=== PATIENT | female | born 1965 | race Caucasian/White ===

== ENCOUNTER 2020-06-08 12:03 | Emergency (ER) | payer BC, SELFPAY ==
[2020-06-08 12:04] VITALS: BP 164/105; PULSE 101; RESP 18; TEMP 36.2; O2SAT 97; BMI 33.8
--- NOTE | 2020-06-08 12:13 | ED.VIS.UPPEX ---
History of Present Illness Chief Complaint: Bite Informant: Patient Occurred: Today Mechanism/Context: - - dog bite Onset: Today Context: Sudden Onset Timing: Continuous Quality of Pain: Sharp Location: left hand Current Severity: Moderate Maximum Severity: Moderate Worsened by: movement Relieved by: nothing Associated Symptoms: Negative for: Parasthesia, Weakness, Loss of Funtion Narrative: 55-year-old [id number] female presents with a dog bite to the left hand. This occurred just prior to arrival by the patient's own dog. Patient states that her dog is up-to-date on immunizations. The patient does not have any significant pain. She denies numbness tingling or weakness. She is not on anticoagulation. She denies any other injuries. None last tetanus immunization. Tetanus Immunization: Unknown Prior similar symptoms: No Recent Illness/Hospitalization: No Past Medical History - Allergies and Home Meds Allergies/Adverse Reactions: Allergies derma cleanse Allergy (Uncoded 06/08/20 12:04) Rash Primary Care Physician: Beltran Calle III, MD [Primary Care Provider] - Prior records reviewed: Yes Past Medical History: None Surgical History: no surgical history Smoking Status: Never smoker Review of Systems All systems negative except as indicated General: Denies: Chills, Fever, Sweats Eyes: Denies: Visual changes - bilaterally, Diplopia ENT: Denies: Rhinorrhea, Sore throat Cardiovascular: Denies: Chest pain, Palpitations Respiratory: Denies: Dyspnea, Cough, Dyspnea on exertion Gastrointestinal: Denies: Abdominal pain, Nausea, Vomiting, Diarrhea, Melena, Hematochezia Genitourinary: Denies: Dysuria, Hematuria, Frequency Musculoskeletal: Reports: Swelling, Extremity Pain. Denies: Back pain Skin: Reports: Wounds. Denies: Rash, Abscess, Abrasions Neurological: Denies: Headache, Weakness, Numbness Physical Exam Vital Signs/Narrative: Vital Signs Temp Pulse Resp BP Pulse Ox 06/08/20 12:04 97.2 F L 101 H 18 164/105 H 97 Inital Vital Signs reviewed: Yes Left Hand: - - Puncture wound dorsum left hand. Mild swelling. No redness or warmth. No rash. It is superficial. Normal active range of motion of all 5 fingers and of the wrist. Radial pulse is normal. Capillary refill and sensation of all 5 fingers is normal. No lymphatic streaking. No active bleeding General: Well nourished, Well developed Head: Normocephalic, Atraumatic Eyes: Perrl, EOMI ENT: No Trauma, Moist Mucous Membranes Neck: Nontender, Full ROM Cardiovascular: Regular rate, Regular rhythm, No murmurs Respiratory: No distress, CTA bilaterally, Chest nontender Abdomen: Soft, Nontender, Nondistended, Normal bowel sounds Back: Nontender Skin: Normal color, No rash Neurological: Alert, Oriented x3, Cranial nerves II-XII grossly intact, Normal Strength, Normal Sensation Psychological: Normal affect Diagnostic/Tx/Re-eval - Medical Decision Making Patient has a puncture wound secondary to dog bite. No sign of infection. No acute signs of arterial bleeding. No signs of compartment syndrome. No sign of infection. Tetanus updated. Augmentin given. Prescribed Augmentin. Bacitracin and dressing applied. Discussed dressing changes proper wound care and signs of infection to monitor for and were advised to follow-up in 2 days for wound check with primary care return to the emergency department for worsening symptoms which were discussed. ED Disposition - Plan for ED Patient: Disposition: Home or Assisted Living Diagnosis: Dog bite of left hand without complication Instructions: ED Dog Bite Prescriptions: Amox/Clavulanate Tablet [Augmentin Tablet] 875 mg PO Q12H #14 tab Prescription Printed Referrals: Beltran Calle III, MD [Primary Care Provider] -
[2020-06-08] MEDS: Diphth,Pertuss(Acell),Tet Vac 0.5 ML Vial IM (12:34)
[2020-06-08] MEDS: Amox/Clavulanate 875 MG Tablet PO (12:34)
== END 2020-06-08 13:02 | disposition home or self-care (01) ==
LOC: ED 12:53
PROVIDERS: Emergency Provider Physician Assistant Medical; PCP Family Medicine
DX: S61.452A Open bite of left hand, initial encounter (principal); W54.0XXA Bitten by dog, initial encounter; Z23 Encounter for immunization
CPT/HCPCS: 90471; 90715; 99283

== ENCOUNTER 2020-08-26 16:43 | Outpatient (RCR) | payer BC, SELFPAY ==
[2020-08-26] MEDS: COVID-19 VACC, MRNA(PFIZER)/PF 30 MCG/0.3 ML SYRINGE IM (17:37)
[2020-09-16] MEDS: COVID-19 VACC, MRNA(PFIZER)/PF 30 MCG/0.3 ML SYRINGE IM (17:20)
== END 2020-08-26 23:59 ==
LOC: IMMUN 16:43
PROVIDERS: PCP Family Medicine; Referring Provider Family Medicine; Visit Provider Family Medicine
DX: Z23 Encounter for immunization (principal)
CPT/HCPCS: 0001A; 0002A; 91300

== ENCOUNTER 2024-08-31 11:00 | Emergency (ER) | payer BC, SELFPAY ==
[2024-08-31 11:01] VITALS: BP 125/83; PULSE 68; RESP 16; TEMP 36.7; O2SAT 100; BMI 27.6
--- NOTE | 2024-08-31 11:14 | CT_ITS ---
PROCEDURE: BRAIN/HEAD WITHOUT CONTRAST 08/31/2024 REASON FOR EXAM: HEAD INJURY, HEADACHE TECHNIQUE: Multiple axial tomographic images were obtained without intravenous contrast administration. Coronal and sagittal reconstruction was obtained as well. COMPARISON: None FINDINGS: There is good iglesias-white matter differentiation. No acute abnormality is seen. No evidence of an intracranial hemorrhage. No evidence of mass effect. CT/Brain/Head without Contrast IMPRESSION: Unremarkable examination. Reading Location: [facility]
--- NOTE | 2024-08-31 11:14 | EKG12_ITS ---
Test Reason : Blood Pressure : */* mmHG Vent. Rate : 62 BPM Atrial Rate : 62 BPM P-R Int : 196 ms QRS Dur : 90 ms QT Int : 402 ms P-R-T Axes : 84 55 46 degrees QTcB Int : 408 ms Normal sinus rhythm Low voltage QRS Borderline ECG Confirmed by REGINE UF, GERBER ([id number]), editor at large DEEPIKA PALMER ([id number]) on 09/03/2024 6:46:53 AM Referred By: Confirmed By: GERBER WEINER MD
--- NOTE | 2024-08-31 11:15 | EDS_ITS ---
HPI History of Present Illness Chief Complaint: Syncope Detail of Chief Complaint: Syncope Informant: patient Narrative Narrative: Patient presents to the emergency department after syncopal episode 2 nights ago. Patient states that she had just finished a hot bath and was standing putting some lotion on her face when she remembers feeling dizzy and then passed out. Her barged into the bathroom then and she came to pretty quickly. She complained of a headache. Yesterday she felt off balance. She called her primary care physician's office and she was instructed to come in and get evaluated. She had 1 other episode of syncope years ago. She denies chest pain or shortness of breath. She denies recent illness otherwise. PFSH PFSH Home Medications ?Medication ?Instructions ?Recorded ?Last Taken ?Type amoxicillin 875 mg-potassium 875 mg (0.875 x 875-125 m g) PO 06/08/20 Unknown Rx clavulanate 125 mg tablet Q12H #14 tabs docusate sodium 50 mg capsule 50 mg PO DAILY 06/08/20 Unknown History multivitamin 1 tab PO DAILY 06/08/20 Unkn own History naproxen 250 mg tablet 250 mg PO DAILY 06/08/20 Unk nown History trazodone 50 mg tablet 2 tab PO QHS 06/08/20 Unknow n History Allergy/AdvReac Type Severity Reaction Status Date / Time Environmental Allergies: Allergy Rash Verified 10/19/22 12:36 Uncoded Social History Smoking Status: Never smoker ROS ROS ED ROS Narrative Syncope Review of Systems ROS Unobtainable: other Constitutional Constitutional ED: Reports lethargy; Denies chills, fever(s), sweats or weight loss Eyes Eyes: Denies blurry vision, change in vision or diplopia ENT ENT ED: Denies rhinorrhea or sore throat Cardiovascular Cardiovascular: Reports chest pain and racing heartbeat; Denies orthopnea Respiratory/Chest Respiratory/Chest: Denies cough, dyspnea, dyspnea on exertion, orthopnea or sputum Gastrointestinal Gastrointestinal: Denies abdominal pain, diarrhea, nausea or vomiting Genitourinary Genitourinary ED: Denies dysuria, hematuria or urinary frequency Musculoskeletal Musculoskeletal: Denies arthralgias, back pain, myalgias or neck pain Integumentary Denies abscess, Abrasions or rash Neurologic Neurologic: Reports headache(s); Denies weakness Psychiatric Psychiatric: Denies anxiety, depression or suicidal thoughts Endocrine Endocrinology: Denies polydipsia, polyphagia or polyuria Hematologic/Lymphatic Hematologic/Lymphatic: Denies easy bleeding, easy bruising or lymphadenopathy Allergic/Immunologic Allergic/Immunologic ED: Denies mouth swelling, tongue swelling or urticaria EXAM Physical Exam Const Vital Signs: 08/31/24 11:01 Temperature 98.1 F Temperature Source Temporal Pulse Rate 68 Respiratory Rate 16 Blood Pressure 125/83 H Blood Pressure Mean 97 Pulse Ox 100 Oxygen Delivery Method Room Air Positive well nourished and well developed General Appearance ED: well developed and NAD HEENT Reports TM's clear and moist mucous membranes normocephalic and atraumatic; Negative for trauma or tenderness Tympanic Membrane ED: Yes TM's clear Eyes PERRL and EOMs intact bilaterally General Eye ED: Negative for pale conjunctiva or scleral icterus Neck no lymphadenopathy, supple and no JVD Neck Narrative: No C-spine tenderness on exam. Normal range of motion. General: Negative for tenderness Chest Wall inspection of chest normal and palpation of chest normal Chest: Negative for tenderness Resp normal respiratory effort and clear to auscultation bilaterally Effort and Inspection: Negative for respiratory distress or pain with movement Auscultation: Negative for rhonchi, wheezes or diminished lung sounds Cardio regular rate, regular rhythm, S1 normal heart sound, S2 normal heart sound and no murmurs Peripheral Pulses: pulses 2+ throughout GI normal to inspection, nondistended, normoactive bowel sounds, soft to palpation, non-tender, non-distended and no masses Back/Spine no CVA tenderness and no thoracic nor lumbar tenderness Extremity normal to inspection General Extremety ED: Negative for edema General Extremity: Negative for edema Neuro oriented x3, CN's II-XII intact bilaterally, no sensory deficits noted and gait normal Sensorium / Orientation: awake, alert, oriented to person, oriented to place and oriented to time Motor Exam: strength 5/5 throughout and strength abnormal Psych mental status grossly normal Skin no rashes or lesions noted and no wounds MDM MDM MDM Narrative Medical decision making narrative: Patient presents to the emergency department with syncopal episode that occurred 2 days ago and now continues with headache. She is advised by her primary care physician to be seen in the emergency department. Clinically she looks well. Not having chest pain or palpitations. EKG obtained on arrival shows sinus rhythm with ventricular rate of 62 bpm with no acute ST segment changes. CBC with differential shows a white count of 8.1 with hemoglobin 14.1 and platelet count of 338. Chemistries unremarkable. Troponin was less than 6. CT scan of the brain without contrast was unremarkable. Discussed results with patient. I suspect patient likely had a vasovagal type syncope. Recommended she follow-up with her primary care physician within next 3 to 5 days. She is advised if she should develop symptoms again with standing of lightheadedness or dizziness to lay down. Lab Data Attestation: I reviewed the patient's lab results. Labs: Laboratory Results - last 24 hr 08/31/24 11:55 WBC 8.1 RBC 4.95 Hgb 14.1 Hct 41.3 MCV 83.4 MCH 28.5 MCHC 34.1 RDW Std Deviation 43.3 RDW Coeff of Gil 14.3 Plt Count 338 MPV 10.6 Immature Gran % (Auto) 0.400 Neut % (Auto) 62.3 Lymph % (Auto) 24.7 [place] % (Auto) 6.4 Eos % (Auto) 5.2 H Baso % (Auto) 1.0 Absolute Neuts (auto) 5.0 Absolute Lymphs (auto) 2.00 Nucleated RBC % 0 Sodium 137 Potassium 3.9 Chloride 102 Carbon Dioxide 24.3 Anion Gap 10 BUN 17 Creatinine 0.95 Estim Creat Clear Calc 57.14 Est GFR (MDRD) Non-Af 69 BUN/Creatinine Ratio 17.7 Glucose 98 Calcium 9.4 Troponin T High Sens < 6 Radiography Diagnostic Testing: Clinical Impression(s) from Imaging Studies Brain CT 08/31/24 11:14 IMPRESSION: Unremarkable examination. Reading Location: [place] [id number] EKG Initial EKG: Attestation: I personally reviewed and interpreted this EKG as follows: Comments: Sinus rhythm with ventricular rate of 62 bpm with no acute ST segment changes Discharge Plan Triage Chief Complaint: Syncope ED Provider: Naila Benitez Dx/Rx/DC Orders Clinical Impression: Syncope, Closed head injury Instructions: ED Head Injury (Adult), ED Fainting, Vagal Reaction Prescriptions: No Action multivitamin 1 TABLET tablet 1 tab PO DAILY trazodone 50 MG tablet 2 tab PO QHS naproxen 250 MG tablet 250 mg PO DAILY docusate sodium 50 MG capsule 50 mg PO DAILY amoxicillin-pot clavulanate 875 MG tablet 875 mg PO Q12H Qty: 14 0RF Primary Care Provider: Aubree Marquis Referrals: Aubree Marquis MD [Primary Care Provider] - 3-5 Days Print Language: Eritre[place] Disposition Disposition: Home, Self Care
[2024-08-31 12:22] LABS: Anion Gap 10 (5-15); BUN 17 mg/dL (4-19); BUN/Creat Ratio 17.7 RATIO (10-20); Basophil# 0.08 X10^3/uL; Calcium,Total 9.4 mg/dL (7.6-11.0); Carbon Dioxide 24.3 mmol/L (21.0-32.0); Chloride 102 mmol/L (98-108); Creatinine, Serum 0.95 mg/dL (0.70-1.20); EST Glomerular Filtration Rate 69 (>60); Eosinophil# 0.42 X10^3/uL; Eosinophils% 5.2 % (0-5); Estimated Creatinine Clearance 57.14 ml/min (50-250); Glucose 98 mg/dL (70-99); Hematocrit 41.3 % (37-47); Hemoglobin 14.1 g/dL (12.0-15.0); Lymphocyte % 24.7 % (19-41); Mean Corp Hgb Conc 34.1 g/dL (32-36); Mean Corpuscular Hgb 28.5 pg (27.0-32.0); Mean Corpuscular Volume 83.4 fL (81-99); Mean Platelet Vol. 10.6 fl (6.2-12.0); Monocyte# 0.52 X10^3/uL; Monocyte% 6.4 % (0-10); NRBC Flagged by Analyzer 0 % (0-5); Neutrophil # 5.04 X10^3/uL (2.7-7.7); Neutrophil % 62.3 % (47-70); Platelet Count 338 K/mm3 (150-450); Potassium 3.9 mmol/L (3.3-5.1); RBC Distribution Width CV 14.3 % (11.6-14.6); RBC Distribution Width SD 43.3 fl (35.1-43.9); Red Blood Count 4.95 M/mm3 (4.2-5.4); Sodium Level 137 mmol/L (133-145); White Blood Count 8.1 K/mm3 (4.4-11.0)
[2024-08-31 12:37] LABS: Troponin T High Sensitivity < 6 ng/L (<=14)
[2024-08-31 13:16] VITALS: BP 135/84; PULSE 68; RESP 16; TEMP 36.6; O2SAT 100
== END 2024-08-31 13:17 | disposition home or self-care (01) ==
PROVIDERS: Emergency Provider Emergency Medicine; PCP Internal Medicine; Visit Provider Emergency Medicine
DX: S09.90XA Unspecified injury of head, initial encounter (principal); R55 Syncope and collapse; X58.XXXA Exposure to other specified factors, initial encounter
CPT/HCPCS: 70450; 80048; 84484; 85025; 93005; 99284; A4216